=== PATIENT | female | born 1980 | race Two or more races ===

== ENCOUNTER 2019-09-14 10:46 | Outpatient (CLI) | payer OTHER | END 2019-09-14 12:32 | disposition home or self-care (01) | LOC: NUCLEAR 10:46 | DX: M79.604 Pain in right leg (principal); I87.2 Venous insufficiency (chronic) (peripheral) ==

== ENCOUNTER 2022-02-17 13:31 | Outpatient (CLI) | payer OTHER | END 2022-02-17 13:41 | disposition home or self-care (01) | LOC: RAD 13:31 | PROVIDERS: ATTEND Orthopaedic Surgery | DX: M25.572 Pain in left ankle and joints of left foot (principal) ==

== ENCOUNTER 2022-02-24 12:23 | Outpatient (CLI) | payer OTHER | END 2022-02-24 13:29 | disposition home or self-care (01) | LOC: RAD 12:23 | PROVIDERS: ATTEND Orthopaedic Surgery | DX: M79.672 Pain in left foot (principal) ==

== ENCOUNTER 2025-07-17 09:00 | Day surgery (SDC) | payer OTHER ==
[2025-07-14 10:39] VITALS: BP 140/86
[2025-07-14 11:43] LABS: BASO % 0.7 % (0.1-1.2); EOS # 0.04 (0.04-0.54); EOS % 0.7 % (0.7-7.0); LYMPH # 0.90 (1.18-3.74); LYMPH % 15.5 % (19.3-53.1); MEAN PLATELET VOLUME 9.50 fl (9.4-12.4); MONO # 0.61 (0.24-0.82); MONO % 10.5 % (4.7-12.5); NEUT # 4.19 (1.56-6.13); NEUT % 72.3 % (34.0-71.1); RED CELL DISTRIBUTION WIDTH 11.1 % (11.6-14.4)
[2025-07-14 11:54] LABS: URINE APPEARANCE Clear; URINE BILIRRUBIN Small (NEGATIVE); URINE BLOOD Negative; URINE COLOR Dark Yellow; URINE GLUCOSE Negative (NEGATIVE); URINE KETONE 15 (NEGATIVE); URINE LEUKOCYTE Trace; URINE NITRATE Negative; URINE PROTEIN Negative (NEGATIVE); URINE UROBILINOGEN 1.0 E.U./dl
[2025-07-14 11:55] LABS: URINE BACTERIA 2967.4 uL (0.0-1933); URINE EPITHELIAL CELLS 74.6 uL (0.0-38.8); URINE RBC 9.6 uL (0.0-20.8); URINE WBC 51.3 uL (0.0-23.2)
[2025-07-14 11:58] LABS: INR 0.98
[2025-07-14 12:02] LABS: URINE CAST 0.84 uL (0.0-1.40)
[2025-07-14 12:04] LABS: COL EPI 148 SECONDS (82-175)
[2025-07-14 12:14] LABS: ALT/SGPT 90.0 U/L (12-78); AST/SGOT 104.0 U/L (15-37); BILIRUBIN TOTAL 0.57 mg/dL (0.3-1.2); BUN CREA RATIO 13.0 (7.0-25.0); CREATININE SERUM 0.47 mg/dL (0.55-1.02); GFR 143.95; GLOBULINA 3.3 G/DL (2.4-3.5); GLUCOSE FASTING 79.0 mg/dL (65-100); OSMOLALITY SERUM 280.0 MOSM/KG (275-295)
[~2025-07-17] VITALS: Ht 152.4 cm; Wt 48.1 kg
[2025-07-17] MEDS ORDERED: CEFAZOLIN SODIUM 1,000 MG VIAL ONE (10:14)
== END 2025-07-17 18:00 | disposition home or self-care (01) ==
LOC: CIR.AMB 09:00
PROVIDERS: ATTEND Orthopaedic Surgery
DX: S82.62XA Displaced fracture of lateral malleolus of left fibula, initial encounter for closed fracture (principal)
CPT/HCPCS: 27792; L8699

== ENCOUNTER 2025-07-31 10:00 | Outpatient (CLI) | payer OTHER | END 2025-07-31 10:03 | disposition home or self-care (01) | LOC: RAD 10:00 | PROVIDERS: ATTEND Orthopaedic Surgery | DX: S93.432D Sprain of tibiofibular ligament of left ankle, subsequent encounter (principal) ==